=== PATIENT | male | born 1985 | race Caucasian/White ===

== ENCOUNTER 2019-03-07 08:34 | Emergency (ER) | payer BC ==
[2019-03-07 09:41] VITALS: BP 130/87
--- NOTE | 2019-03-07 10:12 | UC ---
Respiratory Complaint HPI - HPI Summary HPI Summary: Patient is 34 year old male , who present today to the urgent care with upper respiratory symptoms since last night. Reports fever( subjective), sore throat, chills, cough. There is associated body aches. Took ibuprofen yesterday. Denies any chest pain or shortness of breath . Denies any abdominal pain , nausea or vomiting , diarrhea or constipation. - History of Current Complaint Chief Complaint: UCRespiratory Stated Complaint: SORE THROAT Time Seen by Provider: 03/07/19 10:02 Hx Obtained From: Patient Pain Intensity: 6 - Allergies/Home Medications Allergies/Adverse Reactions: Allergies Allergy/AdvReac Type Severity Reaction Status Date / Time No Known Allergies Allergy Verified 03/07/19 09:41 Home Medications: Home Medications Acetaminophen [Tylenol] 650 mg PO ONCE 03/07/19 [History Confirmed 03/07/19] PMH/Surg Hx/FS Hx/Imm Hx - Additional Past Medical History Additional PMH: Past Medical History : Asthma Past Surgical History: Skin graft on the finger Family History : non contributory Social History : Occasional alcohol, non smoker, no drug use.Works at [employer] Previously Healthy: Yes - Surgical History Surgical History: Yes Surgery Procedure, Year, and Place: skin graft on finger - Social History Alcohol Use: Occasionally Substance Use Type: None Smoking Status (MU): Never Smoked Tobacco Review of Systems All Other Systems Reviewed And Are Negative: Yes Constitutional: Positive: Fever, Chills, Fatigue Skin: Positive: Negative Eyes: Positive: Negative ENT: Positive: Sore Throat. Negative: Ear Ache Respiratory: Positive: Cough Cardiovascular: Positive: Negative. Negative: Chest Pain Gastrointestinal: Positive: Negative Genitourinary: Positive: Negative Motor: Positive: Negative Neurovascular: Positive: Negative Musculoskeletal: Positive: Negative Neurological: Positive: Negative Psychological: Positive: Negative Is Patient Immunocompromised?: No Physical Exam - Summary Physical Exam Summary: Physical Exam: Const: Appears well. No signs of apparent distress present. Alert and oriented x 3. Musculo: Walks with a normal gait. Head/Face: Atraumatic, normocephalic on inspection. Eyes: EOMI and PERRLA in both eyes. Conjunctivae clear. No discharge noted ENT: Hearing normal, TM normal appearing bilaterally, non bulging , non erythematous No tenderness to palpation on maxillary and frontal sinus. There is pharyngeal erythema without any exudates . Uvula is midline. Bilateral tender submandibular and anterior cervical lymphadenopathy noted. Respiratory: Respirations are unlabored. Lungs clear to auscultation bilaterally, no wheezing , rhonchi or rales noted . CVS: Regular rate and Rhythm, S1S2 normal , no murmurs identified. Extremities: Peripheral circulation is grossly normal. Pulses 2+ Abdomen : Soft non tender , nondistended , Bowel sounds present . No guarding , rebound tenderness or rigidity noted. Skin: No lesions or rash located on the upper extremities or on the lower extremities. Neuro: Cranial nerves II to XII intact, motor and sensory intact. DTR Intact bilaterally. Mood is normal. Affect is normal. Triage Information Reviewed: Yes Vital Signs: Initial Vital Signs Temp 99.4 F 03/07/19 09:36 Pulse 76 03/07/19 09:36 Resp 18 03/07/19 09:36 BP 130/87 03/07/19 09:36 Pulse Ox 99 03/07/19 09:36 Vital Signs Reviewed: Yes Respiratory Course/Dx - Course Course Of Treatment: During the visit today, Rapid strep test: neg Rapid flu: positive He was given 1 dose of ibuprofen 600 mg. Patient requesting throat culture to be done. We discussed the findings and further plan. I will prescribe the medication to the pharmacy . Patient expressed understanding . - Differential Dx/Diagnosis Provider Diagnosis: Influenza A Discharge ED - Sign-Out/Discharge Documenting (check all that apply): Patient Departure All imaging exams completed and their final reports reviewed: No Studies - Discharge Plan Condition: Stable Disposition: HOME Prescriptions: Oseltamivir CAP* [Tamiflu CAP*] 75 mg PO BID 5 Days #10 cap Patient Education Materials: Influenza (ED) Forms: *Work Release Referrals: Aruna Strickland PA [Primary Care Provider] - 1 Week Additional Instructions: You tested positive for flu and negative for strep test. Please start taking the medication as prescribed to the pharmacy . Maintain hydration, Tylenol or ibuprofen as needed for fever Throat culture is obtained today and somebody will call you with the results if any medication needs to be started. Follow up with your primary care doctor in 1 week Your blood pressure slightly high in Urgent care today and prehypertensive range , plan follow up with PCP for better control Return to Urgent care / ER if symptoms get worse. - Billing Disposition and Condition Condition: STABLE Disposition: Home
[2019-03-07] MEDS ORDERED: Ibuprofen TAB* 600 MG PO ONE (10:27)
[2019-03-07 10:33] LABS: Influenza A Molecular POSITIVE (Negative)
== END 2019-03-07 10:49 | disposition home or self-care (01) ==
LOC: UCCORT 08:34
DX: J10.1 Influenza due to other identified influenza virus with other respiratory manifestations (principal); J39.2 Other diseases of pharynx; J45.909 Unspecified asthma, uncomplicated
CPT/HCPCS: 87070; 87651; 99202; A9270-GY; G0463